=== PATIENT | male | born 1965 | race Caucasian/White ===

== ENCOUNTER 2016-07-28 02:56 | Emergency (ER) | payer SELFPAY ==
[~2016-07-28] VITALS: Ht 175.3 cm; Wt 90.7 kg
--- NOTE | 2016-07-28 03:01 | NUR ---
PATIENT BROUGHT INTO ER BY [facility] FOR C/O "INDIGESTION" X1HR WITH FLU LIKE SYMPTOMS X1 DAY. BLOOD SUGAR ON THE FIELD WAS 126... PT IS ALERT, ORIENTED X 4, NO RESP DISTRESS NOTED OR REPORTED UPON ASSESSMENT... MD AT BEDSIDE...
[2016-07-28] MEDS ORDERED: ONDANSETRON 4 MG/2 ML VIAL IV ONE (03:30)
[2016-07-28] MEDS ORDERED: PANTOPRAZOLE SODIUM 40 MG VIAL IV ONE (03:30)
[2016-07-28] MEDS ORDERED: IV NORMAL SALINE 1000 ML BAG IV ONE (03:30)
[2016-07-28] MEDS ORDERED: ONDANSETRON 4 MG/2 ML VIAL ONE (03:40)
[2016-07-28] MEDS ORDERED: PANTOPRAZOLE SODIUM 40 MG VIAL ONE (03:41)
--- NOTE | 2016-07-28 04:15 | NUR ---
PT CONTINUES RESTING IN BED, NO RESP DISTRESS NOTED OR REPORTED UPON ASSESSMENT..WILL CONTINUE TO MONITOR FOR SAFETY, COMFORT AND PAIN...
[2016-07-28 04:21] LABS: BASOPHILS % (AUTO) 0.1 % (0.0-2.0); EOSINOPHILS % (AUTO) 0.5 % (0.0-7.0); HEMATOCRIT 41.1 % (40-50); HEMOGLOBIN 14.5 G/DL (14.0-18.0); LYMPHOCYTES # (AUTO) 0.4 K/UL (0.8-4.8); LYMPHOCYTES % (AUTO) 3.6 % (20.5-51.5); MEAN CORPUSCULAR HGB CONC 35 g/dL (32.0-37.0); MEAN CORPUSCULAR VOLUME 93.7 FL (82.0-92.0); MONOCYTES # (AUTO) 0.4 K/UL (0.1-1.30); MONOCYTES % (AUTO) 4.3 % (0.0-11.0); NEUTROPHILS # (AUTO) 9.1 K/UL (1.8-8.9); NEUTROPHILS % (AUTO) 91.5 % (38.5-71.5); PLATELET COUNT (AUTO) 178 K/UL (150-450); RED BLOOD CELL COUNT(AUTO) 4.39 MIL/UL (4.7-6.1); WHITE BLOOD COUNT (AUTO) 9.9 K/UL (4.0-11.2)
[2016-07-28 04:29] LABS: BILIRUBIN,DIRECT 0.4 mg/dL (0.0-0.2); BILIRUBIN,TOTAL 2.2 mg/dL (0.2-1.0); CREATININE 1.1 mg/dL (0.6-1.3); POTASSIUM 3.9 mmol/L (3.5-5.1); TOTAL PROTEIN, SERUM 7.7 g/dL (6.4-8.2)
--- NOTE | 2016-07-28 07:16 | NUR ---
CARE ENDORSED TO DAYSHIFT NURSE...
--- NOTE | 2016-07-28 07:16 | NUR ---
PT ASSISSTED TO BATHROOM, DENIES DIZZINESS AND NAUSEA.
--- NOTE | 2016-07-28 07:53 | NUR ---
IV removed. Catheter intact and site benign. Pressure and 4x4 gauze applied to site. No bleeding noted.
[2016-07-28 07:55] VITALS: BP 105/66
--- NOTE | 2016-07-28 07:58 | NUR ---
Patient discharged to home in stable conditon. Written and verbal after care instructions given. Patient verbalizes understanding of instructions.
== END 2016-07-28 07:59 | disposition home or self-care (01) ==
LOC: ER 02:56
DX: R11.2 Nausea with vomiting, unspecified (principal); E78.5 Hyperlipidemia, unspecified; Z90.49 Acquired absence of other specified parts of digestive tract
CPT/HCPCS: 36415; 71010; 80048; 80076; 83605; 83690; 84484; 85025; 85730; 87040 ×2; 93005; 96361; 96374; 96375; 99285; A4663; C9113; J2405; J7030 ×2; 70030-TC